=== PATIENT | male | born 1995 | race Caucasian/White ===

== ENCOUNTER 2017-08-04 09:07 | Emergency (ER) | payer SELFPAY ==
[~2017-08-04] VITALS: Ht 182.9 cm; Wt 86.2 kg
[2017-08-04] MEDS ORDERED: IBUPROFEN 600 MG TAB PO STA (12:02)
[2017-08-04 14:28] VITALS: BP 125/67
== END 2017-08-04 14:31 | disposition home or self-care (01) ==
LOC: ER 09:07
DX: R50.9 Fever, unspecified (principal); R05 Cough; B34.9 Viral infection, unspecified; J02.9 Acute pharyngitis, unspecified; F17.210 Nicotine dependence, cigarettes, uncomplicated; F12.90 Cannabis use, unspecified, uncomplicated
CPT/HCPCS: 83518; 87070; 87400; 99283